=== PATIENT | male | born 1985 | race Caucasian/White ===

== ENCOUNTER 2020-08-29 12:08 | Emergency (ER) | payer MEDICAID ==
[~2020-08-29] VITALS: Ht 172.7 cm; Wt 75.0 kg
[2020-08-29] MEDS ORDERED: LIDOCAINE HCL/PF 1% 10 MG/ML 5ML VIAL INFIL ONE (14:00)
[2020-08-29] MEDS ORDERED: BACITRACIN ZINC OINT UDPKT TOP ONE (14:00)
[2020-08-29] MEDS ORDERED: BO1 TP (15:11)
[2020-08-29] MEDS ORDERED: CEPH500T PO (15:11)
[2020-08-29] MEDS ORDERED: IBUP-2029 PO (15:11)
[2020-08-29 15:21] VITALS: BP 92/57
== END 2020-08-29 15:26 | disposition home or self-care (01) ==
LOC: ER 12:29
DX: L03.032 Cellulitis of left toe (principal); L60.0 Ingrowing nail
CPT/HCPCS: 99284; J3490; Z7610

== ENCOUNTER 2020-11-02 15:49 | Emergency (ER) | payer MEDICAID ==
[~2020-11-02] VITALS: Ht 160 cm; Wt 88.0 kg
[~2020-11-02 15:49] MED LIST: BO1 TP; CEPH500T PO; IBUP-2029 PO
[2020-11-02 15:58] VITALS: BP 120/70
[2020-11-02] MEDS ORDERED: CEPH500C2 MT (19:28)
== END 2020-11-02 19:36 | disposition home or self-care (01) ==
LOC: ER 16:19
DX: L03.031 Cellulitis of right toe (principal); L60.0 Ingrowing nail
CPT/HCPCS: 99283